=== PATIENT | male | born 1970 | race Two or more races ===

== ENCOUNTER 2024-01-19 19:05 | Observation (INO) | payer OTHER ==
[2024-01-19 21:25] LABS: BASO % 0.7 % (0-2.0); HEMATOCRIT 34.8 % (35.4-49); HEMOGLOBIN 11.9 GM/dL (11.7-16.9); LYMPH % 38.7 % (8-40); MCH 32.2 pg (25.7-33.7); MCHC 34.3 g/dl (32.0-35.9); MEAN CELL VOLUME 93.7 fl (80-96); MEAN PLT VOLUME 6.3 fl (7.5-11.1); MONO % 11.6 % (3.8-10.2); PLATELET COUNT 354 10^3/uL (134-434); RBC 3.71 M/mm3 (4.00-5.60); RDW 13.9 % (11.9-15.9); WHITE BLOOD COUNT 7.9 K/mm3 (4.0-10.0)
[2024-01-19 22:07] LABS: POTASSIUM 4.9 mmol/L (3.5-5.1)
[2024-01-19 22:09] LABS: CALCIUM 9.4 mg/dL (8.5-10.1)
[2024-01-19 22:10] LABS: ALBUMIN 3.7 g/dl (3.4-5.0); BLOOD UREA NITROGEN 30.7 mg/dL (7-18)
[2024-01-19 22:12] LABS: CREATININE 1.1 mg/dL (0.55-1.3)
[2024-01-19 22:14] LABS: BILIRUBIN,TOTAL 0.2 mg/dL (0.2-1); TOT PROT 7.5 g/dl (6.4-8.2)
[2024-01-19 23:07] LABS: URINE APPEARANCE CLEAR; URINE BILIRUBIN NEGATIVE (NEGATIVE); URINE COLOR YELLOW; URINE GLUCOSE (UA) NEGATIVE (NEGATIVE); URINE KETONE NEGATIVE (NEGATIVE); URINE LEUK ESTERASE NEGATIVE (NEGATIVE); URINE NITRITE NEGATIVE (NEGATIVE); URINE PROTEIN NEGATIVE (NEGATIVE); URINE UROBILINOGEN 0.2 mg/dL (0.2-1.0)
[2024-01-19 23:14] LABS: METHADONE, UR NEGATIVE (NEGATIVE); OPIATES, URI NEGATIVE (NEGATIVE); URINE AMPHETAMINES NEGATIVE (NEGATIVE); URINE BARBITURATES NEGATIVE (NEGATIVE)
[2024-01-19] MEDS: FOLIC ACID INJECTION - 1 MG, THIAMINE HCL 100 MG, MULTIVIT INJECTION ADULT 10 ML in SOD... IVPB ONE (23:14)
[2024-01-19 23:15] LABS: COCAINE, UR NEGATIVE (NEGATIVE); PHENCYCLIDINE,URINE NEGATIVE (NEGATIVE); URINE BENZODIAZEPINES POSITIVE (NEGATIVE)
[2024-01-20 05:25] VITALS: BMI 19.5
[2024-01-20 06:27] LABS: HEMATOCRIT 33.4 % (35.4-49); HEMOGLOBIN 11.8 GM/dL (11.7-16.9); LYMPH % 33.8 % (8-40); MCH 33.2 pg (25.7-33.7); MCHC 35.4 g/dl (32.0-35.9); MEAN CELL VOLUME 93.8 fl (80-96); MEAN PLT VOLUME 6.5 fl (7.5-11.1); MONO % 13.6 % (3.8-10.2); NEUT % 46.6 % (42.8-82.8); PLATELET COUNT 324 10^3/uL (134-434); RBC 3.56 M/mm3 (4.00-5.60); RDW 13.8 % (11.9-15.9); WHITE BLOOD COUNT 6.1 K/mm3 (4.0-10.0)
[2024-01-20 06:57] LABS: POTASSIUM 4.5 mmol/L (3.5-5.1)
[2024-01-20 07:00] LABS: CALCIUM 8.5 mg/dL (8.5-10.1)
[2024-01-20 07:01] LABS: ALBUMIN 3.5 g/dl (3.4-5.0); MAGNESIUM 1.9 mg/dL (1.8-2.4)
[2024-01-20 07:04] LABS: CREATININE 0.9 mg/dL (0.55-1.3); PHOSPHOROUS 5.8 mg/dL (2.5-4.9)
[2024-01-20 07:05] LABS: BILIRUBIN,TOTAL 0.2 mg/dL (0.2-1)
[2024-01-20 07:06] LABS: TOT PROT 6.8 g/dl (6.4-8.2)
[2024-01-20] MEDS: THIAMINE HCL 100 MG TABLET (FP) PO SCH (10:58)
[2024-01-20] MEDS: ENOXAPARIN NA (PORCINE) 40 MG/0.4 ML DISP.SYRIN SQ SCH (10:58)
[2024-01-20] MEDS: FOLIC ACID 1 MG TABLET (FP) PO SCH (10:58)
[2024-01-20] MEDS: MINERAL OIL/PET HY-PHL TOPICAL OINTMENT 454 GM JAR TP SCH (12:58)
[2024-01-20] MEDS: TRIAMCINOLONE ACET 0.1% OINT 15 GM TUBE TP SCH (12:58)
[2024-01-21 10:02] LABS: POTASSIUM 4.5 mmol/L (3.5-5.1)
[2024-01-21 10:19] LABS: CALCIUM 8.9 mg/dL (8.5-10.1)
[2024-01-21 10:20] LABS: ALBUMIN 3.8 g/dl (3.4-5.0); BLOOD UREA NITROGEN 15.6 mg/dL (7-18)
[2024-01-21 10:23] LABS: CREATININE 0.8 mg/dL (0.55-1.3); PHOSPHOROUS 4.8 mg/dL (2.5-4.9)
[2024-01-21 10:24] LABS: BILIRUBIN,TOTAL 0.2 mg/dL (0.2-1); TOT PROT 7.8 g/dl (6.4-8.2)
[2024-01-21] MEDS ORDERED: ALBUTEROL SO4 HFA INHALER IH PRN (16:01)
[2024-01-21] MEDS ORDERED: BUDESONIDE/FORMETEROL FUMARATE 160/4.5 mcg INHALER IH PRN (16:01)
[2024-01-21] MEDS: BUDESONIDE/FORMETEROL FUMARATE 160/4.5 mcg INHALER IH PRN (21:55)
[2024-01-22 09:08] LABS: BASO % 0.6 % (0-2.0); EOS % 2.6 % (0-4.5); HEMATOCRIT 40.6 % (35.4-49); HEMOGLOBIN 13.6 GM/dL (11.7-16.9); LYMPH % 28.4 % (8-40); MCH 31.6 pg (25.7-33.7); MCHC 33.5 g/dl (32.0-35.9); MEAN CELL VOLUME 94.2 fl (80-96); MONO % 8.8 % (3.8-10.2); NEUT % 59.6 % (42.8-82.8); PLATELET COUNT 374 10^3/uL (134-434); RBC 4.31 M/mm3 (4.00-5.60); RDW 13.3 % (11.9-15.9); WHITE BLOOD COUNT 8.5 K/mm3 (4.0-10.0)
[2024-01-22 09:20] LABS: POTASSIUM 4.7 mmol/L (3.5-5.1)
[2024-01-22 09:23] LABS: CALCIUM 9.2 mg/dL (8.5-10.1)
[2024-01-22 09:24] LABS: ALBUMIN 3.9 g/dl (3.4-5.0)
[2024-01-22 09:28] LABS: BILIRUBIN,TOTAL 0.2 mg/dL (0.2-1); TOT PROT 7.7 g/dl (6.4-8.2)
[2024-01-22] MEDS ORDERED: QUEtiapine FUMARATE 50 MG TABLET ONE (09:35)
[2024-01-22] MEDS: QUEtiapine FUMARATE 50 MG TABLET PO SCH (09:51)
[2024-01-22] MEDS ORDERED: QUEtiapine FUMARATE 100 MG TABLET (FP) PO SCH (10:00)
[2024-01-22] MEDS: NICOTINE 14 MG/24 HOURS TOPICAL PATCH TD SCH (13:01)
[2024-01-23 07:14] LABS: HEMATOCRIT 39.3 % (35.4-49); HEMOGLOBIN 13.3 GM/dL (11.7-16.9); MCHC 33.8 g/dl (32.0-35.9); MEAN CELL VOLUME 94.5 fl (80-96); MEAN PLT VOLUME 6.8 fl (7.5-11.1); PLATELET COUNT 343 10^3/uL (134-434); RBC 4.16 M/mm3 (4.00-5.60); RDW 13.7 % (11.9-15.9); WHITE BLOOD COUNT 7.3 K/mm3 (4.0-10.0)
[2024-01-23 07:32] LABS: POTASSIUM 5.2 mmol/L (3.5-5.1)
[2024-01-23 07:36] LABS: BLOOD UREA NITROGEN 18.1 mg/dL (7-18)
[2024-01-23 07:37] LABS: ALBUMIN 3.6 g/dl (3.4-5.0); CALCIUM 9.3 mg/dL (8.5-10.1)
[2024-01-23 07:39] LABS: CREATININE 1.1 mg/dL (0.55-1.3)
[2024-01-23 07:41] LABS: BILIRUBIN,TOTAL 0.2 mg/dL (0.2-1); TOT PROT 7.3 g/dl (6.4-8.2)
[2024-01-24 06:43] VITALS: TEMP 97.9
[2024-01-24] MEDS: SODIUM ZIRCONIUM CYCLOSILICATE (LOKELMA) 5 GM PACKET PO ONE (13:24)
[2024-01-24] MEDS: ACETAMINOPHEN 325 MG TABLET (FP) PO ONE (14:30)
[2024-01-24 14:40] VITALS: BP 138/80; PULSE 88; RESP 17
== END 2024-01-24 15:50 | disposition other institution (70) ==
LOC: JER 19:05 → JERBED 22:59 → J7W 01-20 05:12
PROVIDERS: ADMIT Internal Medicine; ATTEND Internal Medicine
PROC: 3E023GC Introduction of Other Therapeutic Substance into Muscle, Percutaneous Approach (ICD-10-PCS; principal; 2024-01-19)
PROC: 3E033GC Introduction of Other Therapeutic Substance into Peripheral Vein, Percutaneous Approach (ICD-10-PCS; 2024-01-19)
DX: R41.82 Altered mental status, unspecified (principal); F10.129 Alcohol abuse with intoxication, unspecified; L40.9 Psoriasis, unspecified; F31.9 Bipolar disorder, unspecified; I10 Essential (primary) hypertension; Z87.891 Personal history of nicotine dependence; J44.9 Chronic obstructive pulmonary disease, unspecified; Z88.0 Allergy status to penicillin
CPT/HCPCS: 36415; 70450-TC; 71045-TC-FY; 72125-TC; 80053; 80307; 81003; 83690; 83735; 84100; 84484; 85025; 85027; 87086; 93005; 93010; 96365; 96372; 99285-25; G0378

== ENCOUNTER 2024-01-24 17:10 | Inpatient (IN) | payer OTHER ==
[2024-01-24 17:53] VITALS: BMI 21.2
[2024-01-24] MEDS ORDERED: BUDESONIDE/FORMETEROL FUMARATE 160/4.5 mcg INHALER IH PRN (20:28)
[2024-01-24] MEDS ORDERED: NALOXONE (NYS OPIOID OVERDOSE PROGRAM) 4 MG/0.1 ML SPRAY NS PRN (20:29)
[2024-01-24] MEDS ORDERED: POLYETHYLENE GLYCOL (HEALTHYLAX) 3350 17 GM PACKET PO PRN (20:29)
[2024-01-24] MEDS ORDERED: NALOXONE HCL 0.4 MG/ML VIAL IVPUSH PRN (20:29)
[2024-01-24] MEDS ORDERED: BENZONATATE 200 MG CAPSULE PO PRN (20:29)
[2024-01-24] MEDS ORDERED: BENZOCAINE/MENTHOL (CHLORASEPTIC ) LOZENGE MM PRN (20:29)
[2024-01-24] MEDS ORDERED: guaiFENesin 600 MG TABLET.ER (FP) PO PRN (20:29)
[2024-01-24] MEDS ORDERED: LOPERAMIDE HCL 2 MG CAPSULE PO PRN (20:29)
[2024-01-24] MEDS ORDERED: MAGNESIUM HYDROX 2400MG/30ML ORAL SUSPENSION 30 ML CUP PO PRN (20:29)
[2024-01-24] MEDS: MELATONIN 5 MG TABLETS PO SCH (21:36)
[2024-01-24] MEDS: THIAMINE HCL 100 MG TABLET (FP) PO SCH (21:36)
[2024-01-24] MEDS ORDERED: NALOXONE HCL (KLOXXADO) 8 MG SPRAY NS PRN (21:48)
[2024-01-24] MEDS: BUDESONIDE/FORMETEROL FUMARATE 160/4.5 mcg INHALER IH SCH (22:37)
[2024-01-25] MEDS: PRENATAL VITAMINS W/ FOLIC ACID TABLET (FP) PO SCH (09:30)
[2024-01-25] MEDS: NICOTINE 21 MG/24 HOURS TOPICAL PATCH TD SCH (09:31)
[2024-01-25] MEDS ORDERED: FOLIC ACID 1 MG TABLET (FP) PO SCH (10:00)
[2024-01-25] MEDS ORDERED: NICOTINE 14 MG/24 HOURS TOPICAL PATCH TD SCH ×2 (10:00)
[2024-01-25] MEDS: TRIAMCINOLONE ACET 0.1% OINT 15 GM TUBE TP SCH (10:34)
[2024-01-25] MEDS: ACETAMINOPHEN 325 MG TABLET (FP) PO PRN (11:05)
[2024-01-25] MEDS: NICOTINE POLACRILEX 4 MG GUM BUC PRN (11:41)
[2024-01-25 12:12] LABS: POTASSIUM 4.1 mmol/L (3.5-5.1)
[2024-01-25 12:16] LABS: ALBUMIN 3.5 g/dl (3.4-5.0); CALCIUM 8.8 mg/dL (8.5-10.1)
[2024-01-25 12:19] LABS: CREATININE 0.9 mg/dL (0.55-1.3)
[2024-01-25 12:20] LABS: BILIRUBIN,TOTAL 0.2 mg/dL (0.2-1)
[2024-01-25 12:21] LABS: TOT PROT 7.2 g/dl (6.4-8.2)
[2024-01-25] MEDS: MINERAL OIL/PET HY-PHL TOPICAL OINTMENT 454 GM JAR TP SCH (16:02)
[2024-01-25] MEDS: IBUPROFEN 600 MG TABLET (FP) PO PRN (16:45)
[2024-01-25] MEDS: ALBUTEROL SO4 HFA INHALER IH PRN (21:06)
[2024-01-25] MEDS: QUEtiapine FUMARATE 50 MG TABLET PO SCH (21:06)
[2024-01-28] MEDS: amLODIPine BESYLATE 2.5 MG TABLET (FP) PO SCH (10:20)
[2024-01-28] MEDS: LIDOCAINE 5% TOPICAL PATCH TP SCH (16:17)
[2024-01-28] MEDS: MAG HYDROX/AL HYDROX/SIMETH 30 ML UNIT-DOSE CUP PO PRN (19:57)
[2024-01-28] MEDS: LIDOCAINE PATCH REMOVAL MC SCH (21:05)
[2024-01-29 15:04] LABS: INR 0.97 (0.83-1.09); PROTHROMBIN TIME (PATIENT) 11.3 SEC (9.7-13.0)
[2024-01-31] MEDS: IBUPROFEN 400 MG TABLET (FP) PO PRN (11:02)
[2024-01-31] MEDS: guaiFENesin 200 MG/10 ML 10 ML UNIT-DOSE CUPS PO PRN (17:43)
[2024-01-31] MEDS: diphenhydrAMINE HCL 25 MG CAPSULE (FP) PO ONE (22:39)
[2024-02-01] MEDS: VITAMINS A AND D TOPICAL OINTMENT TP SCH (00:30)
[2024-02-01] MEDS: LACTULOSE 20 GM/30 ML UDC (FOR ORAL USE ONLY) PO SCH (15:14)
[2024-02-02] MEDS: NALTREXONE HCL 50 MG TABLET PO SCH (10:23)
[2024-02-07 07:26] VITALS: RESP 17; TEMP 96.4
[2024-02-07 09:06] VITALS: BP 123/79; PULSE 85
== END 2024-02-07 09:12 | disposition home or self-care (01) | DRG 895 ==
LOC: YASAS 17:10 → Y3E 21:06
PROVIDERS: ADMIT Allergy & Immunology; ATTEND Psychiatry & Neurology Pain Medicine
PROC: HZ42ZZZ Group Counseling for Substance Abuse Treatment, Cognitive-Behavioral (ICD-10-PCS; principal; 2024-01-24)
DX: F10.20 Alcohol dependence, uncomplicated (principal); E72.20 Disorder of urea cycle metabolism, unspecified; F17.210 Nicotine dependence, cigarettes, uncomplicated; F10.282 Alcohol dependence with alcohol-induced sleep disorder; F31.9 Bipolar disorder, unspecified; I10 Essential (primary) hypertension; J44.9 Chronic obstructive pulmonary disease, unspecified; J45.20 Mild intermittent asthma, uncomplicated; J06.9 Acute upper respiratory infection, unspecified; L40.9 Psoriasis, unspecified; M25.511 Pain in right shoulder; Z99.89 Dependence on other enabling machines and devices
CPT/HCPCS: 0241U-QW; 36415; 80053; 82140; 82652; 82962; 83036; 83735; 85610; 86780; 86803; 87811

== ENCOUNTER 2024-02-09 22:29 | Emergency (ER) | payer OTHER ==
[2024-02-09 22:38] VITALS: BMI 18.2
[2024-02-09] MEDS ORDERED: ONDANSETRON 4 MG/2 ML VIAL ONE (23:33)
[2024-02-10] MEDS: ONDANSETRON 4 MG/2 ML VIAL IVPUSH ONE (00:06)
[2024-02-10] MEDS: LACTATED RINGERS SOLUTION 1000 ML INFUS.BAG IV ONE (00:06)
[2024-02-10 00:19] LABS: BASO % 0.3 % (0-2.0); EOS % 2.2 % (0-4.5); HEMATOCRIT 37.3 % (35.4-49); HEMOGLOBIN 12.7 GM/dL (11.7-16.9); LYMPH % 38.4 % (8-40); MCH 31.4 pg (25.7-33.7); MCHC 34.1 g/dl (32.0-35.9); MEAN CELL VOLUME 91.9 fl (80-96); MEAN PLT VOLUME 6.8 fl (7.5-11.1); MONO % 8.4 % (3.8-10.2); NEUT % 50.7 % (42.8-82.8); PLATELET COUNT 301 10^3/uL (134-434); RBC 4.06 M/mm3 (4.00-5.60); RDW 13.8 % (11.9-15.9)
[2024-02-10 00:20] LABS: INR 1.31 (0.83-1.09); PROTHROMBIN TIME (PATIENT) 15.2 SEC (9.7-13.0)
[2024-02-10 00:23] LABS: ACTIVATED PTT 38.9 SECONDS (25.2-36.5)
[2024-02-10 00:43] LABS: POTASSIUM 4.5 mmol/L (3.5-5.1)
[2024-02-10 00:45] LABS: CALCIUM 8.7 mg/dL (8.5-10.1)
[2024-02-10 00:46] LABS: ALBUMIN 3.7 g/dl (3.4-5.0); BLOOD UREA NITROGEN 31.9 mg/dL (7-18)
[2024-02-10 00:49] LABS: CREATININE 1.7 mg/dL (0.55-1.3)
[2024-02-10 00:50] LABS: BILIRUBIN,TOTAL 0.3 mg/dL (0.2-1); TOT PROT 7.4 g/dl (6.4-8.2)
[2024-02-10 01:39] VITALS: BP 103/62; PULSE 76; RESP 18; TEMP 98.3
[2024-02-10 01:53] LABS: POTASSIUM 4.2 mmol/L (3.5-5.1)
[2024-02-10 01:55] LABS: CALCIUM 8.5 mg/dL (8.5-10.1)
[2024-02-10 01:56] LABS: ALBUMIN 3.3 g/dl (3.4-5.0); BLOOD UREA NITROGEN 28.5 mg/dL (7-18)
[2024-02-10 01:59] LABS: CREATININE 1.4 mg/dL (0.55-1.3)
[2024-02-10 02:01] LABS: BILIRUBIN,TOTAL 0.2 mg/dL (0.2-1); TOT PROT 6.4 g/dl (6.4-8.2)
[2024-02-10] MEDS ORDERED: LACTULOSE 20 GM/30 ML UDC (FOR ORAL USE ONLY) ONE (02:16)
[2024-02-10] MEDS: LACTULOSE 20 GM/30 ML UDC (FOR ORAL USE ONLY) PO ONE (02:29)
== END 2024-02-10 03:01 | disposition home or self-care (01) ==
LOC: JER 22:29
PROC: 3E033GC Introduction of Other Therapeutic Substance into Peripheral Vein, Percutaneous Approach (ICD-10-PCS; principal; 2024-02-10)
DX: N17.9 Acute kidney failure, unspecified (principal); E72.20 Disorder of urea cycle metabolism, unspecified; F10.20 Alcohol dependence, uncomplicated; R11.0 Nausea; R42 Dizziness and giddiness; F31.9 Bipolar disorder, unspecified
CPT/HCPCS: 36415; 80053; 80307; 82140; 84484; 85025; 85610; 85730; 93005; 93010; 99284-25

== ENCOUNTER 2024-02-22 18:12 | Emergency (ER) | payer OTHER ==
[2024-02-22 18:41] VITALS: BP 111/56; PULSE 82; RESP 18; TEMP 98.1; BMI 21.6
[2024-02-22] MEDS ORDERED: THIAMINE HCL 200 MG/2 ML VIAL ONE (19:55)
[2024-02-22] MEDS ORDERED: ACETAMINOPHEN INJECTION 100 ML IVPB ONE (19:56)
[2024-02-22 20:15] LABS: BASO % 0.6 % (0-2.0); HEMATOCRIT 38.1 % (35.4-49); HEMOGLOBIN 13.2 GM/dL (11.7-16.9); LYMPH % 37.3 % (8-40); MCH 31.3 pg (25.7-33.7); MCHC 34.5 g/dl (32.0-35.9); MEAN CELL VOLUME 90.6 fl (80-96); MEAN PLT VOLUME 6.4 fl (7.5-11.1); NEUT % 55.1 % (42.8-82.8); PLATELET COUNT 234 10^3/uL (134-434); RDW 12.9 % (11.9-15.9)
[2024-02-22] MEDS: SODIUM CHLORIDE 0.9% 500 ML INFUS.BAG IV ONE (20:19)
[2024-02-22] MEDS: ACETAMINOPHEN 1000 MG/100 ML BAG IVPB ONE (20:19)
[2024-02-22] MEDS: THIAMINE HCL 200 MG/2 ML VIAL IVPB ONE (20:21)
[2024-02-22 20:39] LABS: CALCIUM 7.8 mg/dL (8.5-10.1)
[2024-02-22 20:41] LABS: ALBUMIN 3.5 g/dl (3.4-5.0); BLOOD UREA NITROGEN 24.2 mg/dL (7-18)
[2024-02-22 20:43] LABS: CREATININE 0.9 mg/dL (0.55-1.3)
[2024-02-22 20:44] LABS: BILIRUBIN,TOTAL 0.4 mg/dL (0.2-1)
== END 2024-02-22 22:47 | disposition home or self-care (01) ==
LOC: JER 18:12
PROC: 3E030NZ Introduction of Analgesics, Hypnotics, Sedatives into Peripheral Vein, Open Approach (ICD-10-PCS; principal; 2024-02-22)
PROC: 3E030GC Introduction of Other Therapeutic Substance into Peripheral Vein, Open Approach (ICD-10-PCS; 2024-02-22)
DX: F10.929 Alcohol use, unspecified with intoxication, unspecified (principal); R10.13 Epigastric pain
CPT/HCPCS: 36415; 80053; 80307; 83690; 85025; 96374; 96375; 99284-25; J0131

== ENCOUNTER 2024-02-22 23:56 | Inpatient (IN) | payer OTHER ==
[2024-02-23 00:46] VITALS: BMI 20.9
[2024-02-23] MEDS ORDERED: IBUPROFEN 400 MG TABLET (FP) PO PRN (02:09)
[2024-02-23] MEDS ORDERED: NALOXONE HCL (KLOXXADO) 8 MG SPRAY NS PRN (02:09)
[2024-02-23] MEDS ORDERED: hydrOXYzine PAMOATE 25 MG CAPSULE (FP) PO PRN (02:09)
[2024-02-23] MEDS ORDERED: NALOXONE HCL 0.4 MG/ML VIAL IM PRN (02:09)
[2024-02-23] MEDS ORDERED: METHOCARBAMOL 500 MG TABLET PO PRN (02:09)
[2024-02-23] MEDS ORDERED: BENZONATATE 200 MG CAPSULE PO PRN (02:09)
[2024-02-23] MEDS ORDERED: BENZOCAINE/MENTHOL (CHLORASEPTIC ) LOZENGE MM PRN (02:09)
[2024-02-23] MEDS ORDERED: BISMUTH SUBSALICYLATE 524 MG/30 ML PO PRN (02:09)
[2024-02-23] MEDS ORDERED: ONDANSETRON *ODT* 4 MG TABLET SL PRN (02:09)
[2024-02-23] MEDS ORDERED: MAGNESIUM HYDROX 2400MG/30ML ORAL SUSPENSION 30 ML CUP PO PRN (02:09)
[2024-02-23] MEDS ORDERED: MAG HYDROX/AL HYDROX/SIMETH 30 ML UNIT-DOSE CUP PO PRN (02:09)
[2024-02-23] MEDS ORDERED: ACETAMINOPHEN 325 MG TABLET (FP) PO PRN (02:09)
[2024-02-23] MEDS ORDERED: DICYCLOMINE HCL 10 MG CAPSULE PO PRN (02:09)
[2024-02-23] MEDS ORDERED: POLYETHYLENE GLYCOL (HEALTHYLAX) 3350 17 GM PACKET PO PRN (02:09)
[2024-02-23] MEDS ORDERED: guaiFENesin 600 MG TABLET.ER (FP) PO PRN (02:09)
[2024-02-23] MEDS ORDERED: LOPERAMIDE HCL 2 MG CAPSULE PO PRN (02:09)
[2024-02-23] MEDS ORDERED: NICOTINE POLACRILEX 2 MG GUM BUC PRN (02:09)
[2024-02-23] MEDS: LORazepam 2 MG TABLET PO SCH (06:11)
[2024-02-23] MEDS: LORazepam 1 MG TABLET PO PRN (06:13)
[2024-02-23] MEDS: NICOTINE 21 MG/24 HOURS TOPICAL PATCH TD SCH (10:18)
[2024-02-23] MEDS: PRENATAL VITAMINS W/ FOLIC ACID TABLET (FP) PO SCH (10:18)
[2024-02-23] MEDS: amLODIPine BESYLATE 2.5 MG TABLET (FP) PO SCH (12:21)
[2024-02-23] MEDS: BUDESONIDE/FORMETEROL FUMARATE 160/4.5 mcg INHALER IH SCH (12:30)
[2024-02-23] MEDS: TRIAMCINOLONE ACET 0.1% OINT 15 GM TUBE TP SCH (12:35)
[2024-02-23] MEDS: THIAMINE 100 MG TABLET PO SCH (22:13)
[2024-02-23] MEDS: MELATONIN 5 MG TABLETS PO SCH (22:13)
[2024-02-23] MEDS: QUEtiapine FUMARATE 50 MG TABLET PO SCH (22:13)
[2024-02-24] MEDS: LORazepam 1 MG TABLET PO SCH (05:20)
[2024-02-24] MEDS: ALBUTEROL SO4 HFA INHALER IH PRN (05:22)
[2024-02-24 10:14] LABS: HEMATOCRIT 38.7 % (35.4-49); HEMOGLOBIN 12.9 GM/dL (11.7-16.9); MCH 30.7 pg (25.7-33.7); MCHC 33.3 g/dl (32.0-35.9); MEAN CELL VOLUME 92.2 fl (80-96); MEAN PLT VOLUME 7.6 fl (7.5-11.1); PLATELET COUNT 241 10^3/uL (134-434); RDW 13.5 % (11.9-15.9); WHITE BLOOD COUNT 6.7 K/mm3 (4.0-10.0)
[2024-02-24 10:19] LABS: POTASSIUM 4.4 mmol/L (3.5-5.1)
[2024-02-24 10:21] LABS: ALBUMIN 3.2 g/dl (3.4-5.0); BLOOD UREA NITROGEN 19.6 mg/dL (7-18); CALCIUM 7.8 mg/dL (8.5-10.1)
[2024-02-24 10:25] LABS: CREATININE 0.9 mg/dL (0.55-1.3)
[2024-02-24 10:26] LABS: BILIRUBIN,TOTAL 0.4 mg/dL (0.2-1); TOT PROT 6.6 g/dl (6.4-8.2)
[2024-02-25] MEDS ORDERED: LORazepam 0.5 MG TABLET PO PRN
[2024-02-25] MEDS: LORazepam 0.5 MG TABLET PO SCH (05:57)
[2024-02-25] MEDS: IBUPROFEN 600 MG TABLET (FP) PO PRN (08:37)
[2024-02-26] MEDS: LORazepam 0.5 MG TABLET PO ONE (05:33)
[2024-02-26 09:29] VITALS: BP 126/90; PULSE 84; RESP 16; TEMP 97.7
== END 2024-02-26 12:35 | disposition home or self-care (01) | DRG 897 ==
LOC: YASAS 23:56 → Y3N 02-23 02:47
PROVIDERS: ADMIT Allergy & Immunology; ATTEND Surgery
PROC: HZ2ZZZZ Detoxification Services for Substance Abuse Treatment (ICD-10-PCS; principal; 2024-02-23)
DX: F10.230 Alcohol dependence with withdrawal, uncomplicated (principal); F31.9 Bipolar disorder, unspecified; F17.210 Nicotine dependence, cigarettes, uncomplicated; I10 Essential (primary) hypertension; J44.9 Chronic obstructive pulmonary disease, unspecified; L40.9 Psoriasis, unspecified; R41.82 Altered mental status, unspecified; R79.89 Other specified abnormal findings of blood chemistry; R76.11 Nonspecific reaction to tuberculin skin test without active tuberculosis; Z99.89 Dependence on other enabling machines and devices; Z88.0 Allergy status to penicillin
CPT/HCPCS: 36415; 80053; 80307; 85027; 86780; 93005; 93010